=== PATIENT | male | born 1970 | race African-American/Black ===

== ENCOUNTER 2019-06-06 11:59 | Emergency (ER) | payer OTHER ==
[~2019-06-06] VITALS: Ht 182.9 cm; Wt 90.7 kg
[~2019-06-06 11:59] MED LIST: ASA PO; GLIP10TE PO; GLU500 PO
[2019-06-06 12:00] VITALS: BP 115/70
[2019-06-06] MEDS ORDERED: ASPI-1718 PO (12:04)
[2019-06-06 12:21] VITALS: BP 115/70
== END 2019-06-06 12:22 ==
LOC: MED 11:59
DX: E11.9 Type 2 diabetes mellitus without complications (principal); Z02.89 Encounter for other administrative examinations; Z79.84 Long term (current) use of oral hypoglycemic drugs; Z79.82 Long term (current) use of aspirin; Z79.899 Other long term (current) drug therapy
CPT/HCPCS: 99283